=== PATIENT | female | born 1970 | race African-American/Black ===

== ENCOUNTER 2016-12-21 17:21 | Emergency (ER) | payer MEDICARE, MEDICAID ==
[~2016-12-21] VITALS: Ht 160 cm; Wt 84.8 kg
[~2016-12-21 17:21] MED LIST: ALBUTEROL SULF8.5 GM INH; AZITHROMYCIN250 MG ORAL; AZITHROMYCIN250 MG PO; BUSPAR; CELEXA; COLACE; SIMVASTATIN; ZYPREXA
[2016-12-21] MEDS ORDERED: IRON325 M1 PO (17:51)
[2016-12-21] MEDS ORDERED: IBUPROFEN600 MG ORAL (17:51)
[2016-12-21 17:53] VITALS: BP 119/70
[2016-12-21] MEDS ORDERED: Acetaminophen 500mg (ES) tab ORAL ONE (18:30)
--- NOTE | 2016-12-21 19:13 | Emergency Room Report ---
History of Present Illness General Chief Complaint: Upper Respiratory Illness Source: Patient Present Illness HPI 46-year-old female presents emergency department complaining of increased fatigue times one month in addition to intermittent coughing with phlegm. Patient also reports 5/10 pain/discomfort in the left ear. Patient denies discharge from the ear or use of Q-tips. Patient denies nausea, vomiting, or fevers. She does report chills. denies rashes or easy bruising. She denies dizziness, hitting her head or loss of consciousness. Patient denies history of cardiac disease. Patient reports increase in sleep habits denies blood in the stool or black tarry stools. Patient states that she is currently going through menopause though her periods are somewhat sporadic she does not state that they are appreciable the heavy. Denies CP, Palpitations, LOC, AMS, dizziness, Changes in Vision, Sensation, paresthesias, or a sudden severe headache. She reports headache and low back pain times one day. Patient denies trauma or fall. Allergies: Coded Allergies: PENICILLINS (Verified Allergy, Severe, VALDEZ, 09/09/12) Patient History Past Medical History: see triage record Past Surgical History: none Pertinent Family History: none Last Menstrual Period: 11/26/2016 : 1 Para: 0 Reviewed Nursing Documentation: PMH: Agreed, PSxH: Agreed Nursing Documentation-PMH Hx Gastrointestinal Problems: Yes Review of Systems All Other Systems: negative except mentioned in HPI Physical Exam Vital Signs Date Time Temp Pulse Resp B/P Pulse Ox O2 Delivery O2 Flow Rate FiO2 12/21/16 17:44 99.0 78 16 119/70 97 Room Air Sp02 EP Interpretation: reviewed, normal General Appearance: no apparent distress, alert, GCS 15, non-toxic Head: normocephalic, atraumatic Eyes: bilateral eye PERRL, bilateral eye normal inspection ENT: hearing grossly normal, normal pharynx, no angioedema, normal voice, uvula midline, moist mucus membranes, nasal congestion, other - white d/c noted in the left ear canal with erythema, the TM is WNL. Neck: full range of motion, no meningismus, no bony tend, supple/symm/no masses Respiratory: chest non-tender, lungs clear, normal breath sounds, no wheezing, speaking full sentences Cardiovascular #1: regular rate, rhythm, no edema, normal capillary refill Gastrointestinal: non tender, soft, no guarding, no rebound Rectal: deferred Genitourinary: normal inspection, no CVA tenderness Musculoskeletal: back normal, gait/station normal, normal range of motion, non- tender, no calf tenderness Neurologic: alert, oriented x3, responsive, motor strength/tone normal, sensory intact, cerebellar normal, normal gait, speech normal, no pronator Psychiatric: judgement/insight normal, memory normal, mood/affect normal, no suicidal/homicidal ideation Skin: normal color, no rash, warm/dry, well hydrated Lymphatic: no adenopathy Medical Decision Making PA Attestation Dr. Brown is my supervising Physician whom patient management has been discussed with. Diagnostic Impression: Primary Impression: Anemia Qualified Codes: D64.9 - Anemia, unspecified Additional Impression: Otitis externa of left ear Qualified Codes: H60.502 - Unspecified acute noninfective otitis externa, left ear ER Course 46-year-old female presents emergency department complaining of increased fatigue times one month in addition to intermittent coughing with phlegm. Patient also reports 5/10 pain/discomfort in the left ear. Patient denies discharge from the ear or use of Q-tips. Patient denies nausea, vomiting, fevers, chills Ddx considered but are not limited to OM, OE, mastoiditis, TM perforation, FB, anemia, dehydration, Vital signs: are WNL, pt. is afebrile H&PE are most consistent with otitis externa of the left ear. ORDERS: -CBC: evidence of mild anemia, no transfusion warranted. H.9, rbc 3.4 -BMP: WNl no evidence of dehydration ED INTERVENTIONS: - 1000mg Tylenol PO DISCHARGE: At this time pt. is stable for d/c to home. With Otic ABX. Will provide printed patient care instructions, and any necessary prescriptions. Care plan and follow up instructions have been discussed with the patient prior to discharge. Labs Test 12/21/16 19:25 White Blood Count 6.1 K/UL (4.8-10.8) Red Blood Count 3.98 M/UL (4.20-5.40) Hemoglobin 10.8 G/DL (12.0-16.0) Hematocrit 34.7 % (37.0-47.0) Mean Corpuscular Volume 87 FL (80-99) Mean Corpuscular Hemoglobin 27.1 PG (27.0-31.0) Mean Corpuscular Hemoglobin Concent 31.1 G/DL (32.0-36.0) Red Cell Distribution Width 13.4 % (11.6-14.8) Platelet Count 322 K/UL (150-450) Mean Platelet Volume 5.7 FL (6.5-10.1) Neutrophils (%) (Auto) 52.3 % (45.0-75.0) Lymphocytes (%) (Auto) 39.1 % (20.0-45.0) Monocytes (%) (Auto) 5.6 % (1.0-10.0) Eosinophils (%) (Auto) 1.9 % (0.0-3.0) Basophils (%) (Auto) 1.1 % (0.0-2.0) Sodium Level 142 mEQ/L (135-145) Potassium Level 3.9 mEQ/L (3.4-4.9) Chloride Level 102 mEQ/L (98-107) Carbon Dioxide Level 29 mEQ/L (20-30) Anion Gap 11 (5-15) Blood Urea Nitrogen 11 mg/dL (7-23) Creatinine 0.8 mg/dL (0.5-0.9) Estimat Glomerular Filtration Rate > 60 mL/min (>60) Glucose Level 98 mg/dL (74-106) Calcium Level 9.3 mg/dL (8.6-10.2) Last Vital Signs Date Time Temp Pulse Resp B/P Pulse Ox O2 Delivery O2 Flow Rate FiO2 12/21/16 17:53 78 16 Room Air 12/21/16 17:53 99.0 119/70 97 Disposition: HOME, SELF-CARE Condition: Stable Scripts Acetaminophen* (TYLENOL EXTRA STRENGTH*) 500 Mg Tablet 500 MG ORAL Q6H, #30 TAB 0 Refills Prov: Farhana Ordonez 12/21/16 Ferrous Sulfate, Dried (IRON) 160 Mg Tablet.er 160 MG PO DAILY for 7 Days, #20 TAB Prov: Farhana Ordonez 12/21/16 Ciprofloxacin/Hydrocortisone (CIPRO HC OTIC SUSPENSION) 10 Ml Drops.susp 7 DROP OT BID for 7 Days, #10 ML Prov: Farhana Ordonez 12/21/16 Referrals: NON PHYSICIAN (PCP) Patient Instructions: Anemia, Nonspecific, Fatigue, Otitis Externa, Easy-to- Read Additional Instructions: Take medications as directed. Follow up with PCP in 3-5 days Return sooner to ED if new symptoms occur, or current symptoms become worse. - Please note that this Emergency Department Report was dictated using [employer] warehouse associate technology software, occasionally this can lead to erroneous entry secondary to interpretation by the dictation equipment. Farhana Ordonez Dec 21, 2016 19:13
[2016-12-21 19:49] LABS: BASOPHILS % (AUTO) 1.1 % (0.0-2.0); EOSINOPHILS % (AUTO) 1.9 % (0.0-3.0); LYMPHOCYTES % (AUTO) 39.1 % (20.0-45.0); MEAN CORPUSCULAR HEMOGLOBIN 27.1 PG (27.0-31.0); MEAN CORPUSCULAR HGB CONC 31.1 G/DL (32.0-36.0); MEAN CORPUSCULAR VOLUME 87 FL (80-99); MEAN PLATELET VOLUME 5.7 FL (6.5-10.1); MONOCYTES % (AUTO) 5.6 % (1.0-10.0); NEUTROPHILS % (AUTO) 52.3 % (45.0-75.0); PLATELET COUNT 322 K/UL (150-450); RED BLOOD COUNT 3.98 M/UL (4.20-5.40); RED CELL DISTRIBUTION WIDTH 13.4 % (11.6-14.8); WHITE BLOOD COUNT 6.1 K/UL (4.8-10.8)
[2016-12-21 20:02] LABS: ANION GAP 11 (5-15); CALCIUM 9.3 mg/dL (8.6-10.2); CARBON DIOXIDE 29 mEQ/L (20-30); CHLORIDE 102 mEQ/L (98-107); CREATININE 0.8 mg/dL (0.5-0.9); GLOMERULAR FILTRATION RATE > 60 mL/min (>60); HEMOLYSIS 2; POTASSIUM 3.9 mEQ/L (3.4-4.9); SODIUM 142 mEQ/L (135-145)
[2016-12-21] MEDS ORDERED: IRON160 MG PO (20:12)
[2016-12-21] MEDS ORDERED: CIPRO HC OTIC S10 M1 OT (20:12)
[2016-12-21] MEDS ORDERED: TYLENOL EXTRA500 MG ORAL (20:17)
[2016-12-21 20:21] VITALS: BP 115/75
== END 2016-12-21 20:21 | disposition home or self-care (01) ==
LOC: EMR 18:16
DX: D64.9 Anemia, unspecified (principal); H60.502 Unspecified acute noninfective otitis externa, left ear; Z88.0 Allergy status to penicillin
CPT/HCPCS: 36415; 80048; 85025; 99284